=== PATIENT | female | born 1995 | race Caucasian/White ===

== ENCOUNTER 2016-06-19 16:48 | Inpatient (IN) | payer OTHER ==
[~2016-06-19] VITALS: Ht 162.6 cm; Wt 111.0 kg
[2016-06-19] MEDS ORDERED: PRENTAB9 PO (17:02)
[2016-06-19] MEDS ORDERED: OXYTOCIN 30 UNITS IN 0.9% NaCl 500ML IV BAG (J2590) As Ordered ONE (17:07)
[2016-06-19] MEDS ORDERED: LR 1,000 ML IV SCH (17:07)
[2016-06-19] MEDS ORDERED: LACTATED RINGER'S 1000 ML IV ONE (17:15)
[2016-06-19 18:09] LABS: MEAN CORPUSCULAR HGB CONC 33.5 g/dl (32.0-36.5); MEAN CORPUSCULAR VOLUME 86.7 fl (80.0-96.0); RED CELL DISTRIBUTION WIDTH 15.8 % (11.5-14.5); WHITE BLOOD COUNT 8.4 K/mm3 (4.0-10.0)
[2016-06-19 18:46] LABS: CORD GAS ABE V -2.5; CORD GAS HCO3 V 21.6 MEQ/L; CORD GAS O2 SAT V 85.6 %; CORD GAS PH V 7.396 UNITS; CORD GAS PO2 V 40.3 mmHg; CORD GAS SBC V 22.1 MEQ/L; CORD GAS TCO2 V 22.7 MEQ/L
[2016-06-19 18:49] LABS: CORD GAS ABE A -5.8; CORD GAS HCO3 A 19.2 MEQ/L; CORD GAS O2 SAT A 38.5 %; CORD GAS PCO2 A 35.9 mmHg; CORD GAS PH A 7.345 UNITS; CORD GAS PO2 A 17.2 mmHg; CORD GAS SBC A 18.5 MEQ/L; CORD GAS TCO2 A 20.3 MEQ/L
[2016-06-19] MEDS ORDERED: OXYTOCIN DRIP 30 UNITS in APPROPRIATE DILUENT 1 EA IV SCH (18:59)
[2016-06-19] MEDS ORDERED: MOM 30ML SUSPENSION UDC PO PRN (19:00)
[2016-06-19] MEDS ORDERED: DIBUCAINE 1% OINTMENT 30GM TOP PRN (19:00)
[2016-06-19] MEDS ORDERED: RHOGAM 300 MCG (1500 IU) INJ (J2790) IM SCH (19:00)
[2016-06-19] MEDS ORDERED: OXYTOCIN INJ 10 UNITS/ML VIAL (J2590) IV ONE (19:00)
[2016-06-19] MEDS ORDERED: ACETAMINOPHEN 500 MG TAB PO PRN (19:00)
[2016-06-19] MEDS ORDERED: ANUSOL HC CREAM 30GM TOP PRN (19:00)
[2016-06-19] MEDS ORDERED: DOCUSATE SODIUM 100 MG CAP PO PRN (19:00)
[2016-06-19] MEDS ORDERED: MEASLES,MUMPS,RUBELLA VACCINE INJ (MMR-II) (90707) SC SCH (19:00)
[2016-06-19] MEDS ORDERED: METHYLERGONOVINE MALEATE 0.2 MG TAB PO PRN (19:00)
--- NOTE | 2016-06-19 19:07 | HPE ---
DATE OF ADMISSION: 06/19/2016 This lady is a 20-year-old 2, para 1, last menstrual period (LMP) 09/10/2015, estimated date of confinement (EDC) 06/26/2016, at 39 weeks of gestation in active labor at 8 cm. Her risk factors is she has a short interval gestation, delivered last baby June 2015, obesity, has an abnormal Pap smear, and has panic attacks. PAST HISTORY: June 2015 at 37 weeks, delivered a male because of gestational hypertension or chronic hypertension, 5 pounds 5 ounces. Labs show A positive, HIV negative, hepatitis negative, RPR negative, rubella nonimmune, Varicella nonimmune. Pap shows LGSIL. GBS is negative. Urine was contaminated. Gonorrhea and chlamydia negative. One-hour glucose was 100, and a 28-week GTT was 111. On examination, we have a distressed female. Symphysis fundus height is 40, 8 cm, bulging membranes, -2 station, 100% effaced. She is having a category 1 strip. Normocephalic, atraumatic. Neck: Full range of motions. Pupils equal and reactive to light. Distal pulses symmetric. No evidence of deep vein thrombosis (DVT), pulmonary embolism (PE), or superficial phlebitis. Chest is clear bilaterally to bases. No wheezes or rhonchi. No costovertebral angle (CVA) tenderness. Four-quadrant bowel sounds are noted. No rashes, lesions, or pruritus. No arthralgia, myalgia. No complaints of cough, wheezes, shortness of breath, or dyspnea on exertion. No palpitations or chest pain. Not bleeding. No bruising. Neurologic complete. No incontinence, urgency, frequency. No nausea, vomiting, diarrhea, or constipation. No diabetic issues. 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 PAST MEDICAL HISTORY: She suffers from panic attack. She does not smoke or drink. Does not abuse drugs. No domestic violence. She is . In summary, we have a term gestation in active labor at 8 cm. We plan to hydrate. We plan to get an epidural if available, and we anticipate vaginal delivery.
[2016-06-19] MEDS: IBUPROFEN 800 MG TAB PO PRN (19:29)
[2016-06-19 20:32] VITALS: BP 131/75
--- NOTE | 2016-06-19 20:39 | IPN ---
DATE: 06/19/2016 This patient's has requested circumcision of their male infant. After discussing risks and benefits of circumcision the medical and nonmedical indications, the penile block and aftercare, both expressed understanding of the penile block and aftercare, risks and benefits, signed and witnessed consent form. We await the clearance by the shop technician.
[2016-06-19] MEDS ORDERED: OXYTOCIN INJ 10 UNITS/ML VIAL (J2590) As Ordered ONE (21:46)
[2016-06-20] MEDS: IBUPROFEN 800 MG TAB PO PRN ×2 (04:37→12:51)
[2016-06-20 05:54] VITALS: BP 137/64
[2016-06-20 06:58] LABS: MEAN CORPUSCULAR HEMOGLOBIN 28.2 pg (27.0-33.0); MEAN CORPUSCULAR HGB CONC 31.9 g/dl (32.0-36.5); MEAN CORPUSCULAR VOLUME 88.5 fl (80.0-96.0); RED CELL DISTRIBUTION WIDTH 16.9 % (11.5-14.5)
[2016-06-20] MEDS: PRENATAL VITAMIN TAB PO SCH (08:36)
--- NOTE | 2016-06-20 09:46 | DN ---
DATE: 06/19/2016 This lady is a 2, para 1 admitted at 8 cm dilatation, at full dilatation with bulging membranes. An AROM was done draining clear liquor. She pushed well, had a spontaneous vaginal delivery of a live male with a cord around the neck once. Gentle traction on the anterior shoulder above and under the pubic bone. The rest of the delivery was spontaneous weighing 8 pounds 5 ounces 3762 grams. of 9 and 9 at 1 and 5 minutes respectively. The baby had terminal meconium. The cord was loose times one around the neck. The placenta delivered spontaneously. There are three-vessel and cord membranes and tissues intact. She had small first-degree tear on the left side, one stitch over sewed with 2-0 Vicryl and [id number] stopped any bleeding. The uterus contracted well down on Pitocin. The patient and baby tolerating procedure well.
--- NOTE | 2016-06-20 11:10 | IPN ---
DATE: 06/20/2016 This lady is a 20-year-old 2 now para 2 came in spontaneous labor 8 cm dilation, delivered a live male weighing 8 pounds 5 ounces, 3762 grams. of 9 and 9 at 1 and 5 minutes respectively. Arterial pH was 7.34, base excess -5.8, venous pH 7.39, base excess -2.5. Her admitting hemoglobin was 10.8, hematocrit 32.3 and platelets were 216. day #1 hemoglobin 10.2, hematocrit 31.9 and platelets are 232. Her vital signs indicate her blood pressure is 137/64, respirations 18, pulse of 98, temperature 98.7. We discussed phlebitis, cystitis, mastitis, metritis and cellulitis, diet, exercise, pain management, perineal breast and wound care. She is planning on using a copper IUCD for control at her 6-week checkup. She is also anxious to get home tomorrow. We are planning on circumcising her male infant after medical clearance by the urogynaecologist.
[2016-06-20 18:00] VITALS: BP 148/73
[2016-06-21 06:02] VITALS: BP 138/93
[2016-06-21] MEDS: IBUPROFEN 800 MG TAB PO PRN (07:25)
[2016-06-21] MEDS: PRENATAL VITAMIN TAB PO SCH (07:25)
--- NOTE | 2016-06-21 09:44 | IPNPDOC ---
Text Note Date of Service The patient was seen on 06/21/16 at 09:39. NOTE Alyssa is a 20yo doing well on PPD 2 s/p uncomplicated . She is . Lochia normal, spontaneously voiding and ambulating without difficulty. Tolerating regular diet. Denies f/c/n/v/SOB/CP/BERNARDO/abdominal pain. Vitals wnl except for a couple low mild range bp's, afebrile Exam: General: WDWN, NAD, resting comfortably Cardiac: S1S2 present, no murmur Lungs: CTAB without wheeze/crackles Abdomen: soft, NTTP, fundus firm u-2cm Extremities: no tenderness of calves bilaterally Assessment: Alyssa is a 20yo doing well on PPD 2 s/p uncomplicated . Meeting all milestones. No e/o infection, hemodynamically stable. Plan: -discharge to home with routine follow-up for 6wk PP visit -home meds already given from clinic stock -desires copper IUD for contraception Dr. Avril Bo MD [facility] SPENCE,[place], I+O VSSanto, I+O Vital Signs Date Time Temp Pulse Resp B/P Pulse Ox O2 Delivery O2 Flow Rate FiO2 06/21/16 06:02 97.7 92 18 138/93 AVRIL BO MD Jun 21, 2016 09:44
[2016-06-21] MEDS ORDERED: NUPE1OIN2 TOP (09:59)
[2016-06-21] MEDS ORDERED: ACET50TA PO (09:59)
[2016-06-21] MEDS ORDERED: COLA100C PO (09:59)
[2016-06-21] MEDS ORDERED: IBUP-1114 PO (09:59)
== END 2016-06-21 12:05 | disposition home or self-care (01) | DRG 775 ==
LOC: M LDO 16:48 → M LDI 17:02 → M OBS 20:31
PROVIDERS: ADMIT Obstetrics & Gynecology; ATTEND Obstetrics & Gynecology
PROC: 10E0XZZ Delivery of Products of Conception, External Approach (ICD-10-PCS; principal; 2016-06-19)
PROC: 10907ZC Drainage of Amniotic Fluid, Therapeutic from Products of Conception, Via Natural or Artificial Opening (ICD-10-PCS; 2016-06-19)
PROC: 0HQ9XZZ Repair Perineum Skin, External Approach (ICD-10-PCS; 2016-06-19)
DX: O69.82X0 Labor and delivery complicated by other cord entanglement, without compression, not applicable or unspecified (principal); Z37.0 Single live birth; O70.0 First degree perineal laceration during delivery; Z3A.39 39 weeks gestation of pregnancy; F41.0 Panic disorder [episodic paroxysmal anxiety]; O99.344 Other mental disorders complicating childbirth; E66.9 Obesity, unspecified; O99.214 Obesity complicating childbirth

== ENCOUNTER 2016-08-08 11:56 | Emergency (ER) | payer OTHER ==
[~2016-08-08] VITALS: Ht 162.6 cm; Wt 98.4 kg
[~2016-08-08 11:56] MED LIST: ACET50TA PO; COLA100C PO; IBUP-1114 PO; NUPE1OIN2 TOP; PRENTAB9 PO
[2016-08-08] MEDS ORDERED: ZOLO50TA PO (12:13)
[2016-08-08] MEDS ORDERED: BCP (12:13)
[2016-08-08] MEDS ORDERED: NS 1,000 ML IV ONE (14:45)
[2016-08-08] MEDS ORDERED: ONDANSETRON 4MG/2ML VIAL (J2405) IV ONE (14:45)
--- NOTE | 2016-08-08 15:04 | ED PDOC ---
Provider Note PT PRESENTS C/O N/V X'S 18 HOURS AND 4 "PANIC ATTACKS" WITH CHEST PAIN IN THE PAST 18 HOURS WELL. PT STATES SHE HAS A 7-WEEK OLD AND A 13 MONTH OLD AT HOME AND HER WAS JUST MANDATED TO LEAVE HOME PER THE [employer]. PT STATES, "HE WAS INITIALLY TOLD HE WOULDN'T HAVE TO LEAVE AND THEY CALLED HIM YESTERDAY AND SAID HE HAD TO GO TODAY." PT ADMITS TO A LOT OF STRESS REGARDING HER LEAVING. 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 " PT HAS BEEN SEEN AT [facility] FOR THIS, HAS AN UPCOMING APPT WITH PSYCH IN LATE SEPTEMBER AND CANNOT GET SEEN ANY SOONER. PT IS NOT CURRENTLY SUICIDAL OR HOMICIDAL AND STATES, "I DON'T WANT IT TO GET TO THAT POINT AND THAT 'S WHY I CAME IN." PT MENTIONS A "RED CROSS MESSAGE" MULTIPLE TIMES IN HER HISTORY, STATING THAT IF ONE IS SENT TO THE [employer], HER NEEDS TO RETURN HOME. SPOKE WITH LOLITA IN [place] AND AGREED TO SPEAK WITH PT. BENOIT GONZALES PA-C Aug 08, 2016 15:04
[2016-08-08 15:30] LABS: BASO % 0.2 % (0.0-1.0); EOS # 0.1 K/mm3 (0.0-0.50); EOS % 0.6 % (0.0-3.0); LARGE UNSTAINED CELL % 0.2 % (0.0-4.0); LYMPH # 0.3 K/mm3 (1.5-6.5); LYMPH % 2.5 % (24.0-44.0); MEAN CORPUSCULAR HEMOGLOBIN 27.9 pg (27.0-33.0); MEAN CORPUSCULAR HGB CONC 32.1 g/dl (32.0-36.5); MEAN CORPUSCULAR VOLUME 86.9 fl (80.0-96.0); MONO # 0.2 K/mm3 (0.0-0.8); MONO % 1.8 % (0.0-5.0); NEUTROPHILS # 10.8 K/mm3 (1.8-7.7); NEUTROPHILS % 94.7 % (36.0-66.0); PLATELET COUNT, AUTOMATED 266 k/mm3 (150-450); RED CELL DISTRIBUTION WIDTH 14.6 % (11.5-14.5); WHITE BLOOD COUNT 11.4 K/mm3 (4.0-10.0)
[2016-08-08 15:41] LABS: ANION GAP 14 MEQ/L (8-16); BLOOD UREA NITROGEN 9 MG/DL (7-18); CALCIUM LEVEL 8.8 MG/DL (8.5-10.1); CARBON DIOXIDE LEVEL 23 MEQ/L (21-32); CHLORIDE LEVEL 105 MEQ/L (98-107); CREATININE FOR GFR 0.86 MG/DL (0.55-1.02); GLOMERULAR FILTRATION RATE > 60.0 (>60); GLUCOSE, FASTING 102 MG/DL (70-105); POTASSIUM SERUM 3.9 MEQ/L (3.5-5.1); SODIUM LEVEL 142 MEQ/L (136-145)
[2016-08-08 17:30] VITALS: BP 135/68
--- NOTE | 2016-08-09 20:03 | ECGEPIP ---
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
== END 2016-08-08 17:41 | disposition home or self-care (01) ==
LOC: M ED 14:35
DX: F41.9 Anxiety disorder, unspecified (principal); O90.6 Postpartum mood disturbance; R11.2 Nausea with vomiting, unspecified; F32.9 Major depressive disorder, single episode, unspecified; Z79.899 Other long term (current) drug therapy; Z79.3 Long term (current) use of hormonal contraceptives; Z88.2 Allergy status to sulfonamides
CPT/HCPCS: 80048; 84443; 85025; 93005; 96361; 96374; 99284; J2405